=== PATIENT | female | born 1935 | race Caucasian/White ===

== ENCOUNTER → 2017-03-05 | Outpatient (CLI) | payer OTHER ==
--- NOTE | ~2017-03-05 | BD1 ---
[facility] A Service of [facility] & [facility] RADIOLOGY TEXT RESULTS PATIENT: JETHRO SAUCEDO LOCATION: [facility] : 39 UNIT #: [id number] AGE: [address]: Gini Gray MD SEX: F ORDER DR: [id number] [address] [id number] O MR#: [id number] Acc #: [id number] NAME: JETHRO SAUCEDO : 1935 SEX: F STUDY DATE/TIME: 03/05/2017 9:57 UNIT: [facility] ROOM: STUDY DESCRIPTION: Dexa Bone Dens 1+ Site Attending Physician: Gini Gray M.D. Referring Physician: Gini Gray M.D. Ordering Physician: Gini Gray M.D. Primary Care Physician: Gini Gray M.D. MEDICAL IMAGING REPORT This report is preliminary unless electronic signature is present. EXAM DXA scan 03/05/2017. HISTORY Status post menopause with no hormone replacement therapy. Osteopenia. Arthritis. Hypertension with blood pressure medication. Smoking history for 10 years. FINDINGS Bone mineral density in the lumbar spine from L1-L4 was 0.937 g/cm2, which is 2 standard deviations below the mean when compared to the young adult reference population which is characteristic of osteopenia. This is 0.2 standard deviations below the mean when compared to the age-matched population. Bone mineral density in the left femoral neck was 0.871 g/cm2, which is 1.2 standard deviations below the mean when compared to the young adult reference population which is characteristic of osteopenia. This is 0.9 standard deviations above the mean when compared to the age-matched population. Bone mineral density in the right femoral neck was 0.765 g/cm2, which is 2 standard deviations below the mean when compared to the young adult reference population which is characteristic of osteopenia. This is 0.2 standard deviations above the mean when compared to the age-matched population. IMPRESSION Bone mineral density in the lumbar spine and the hips bilaterally characteristic of osteopenia. Dictated by... Abran Wang M.D. THIS IS AN ELECTRONICALLY VERIFIED REPORT Abran Wang M.D. at 03/06/2017 7:17 AM KRT/gz STS. [facility] A Service of [facility] & [facility] RADIOLOGY TEXT RESULTS PATIENT: JETHRO SAUCEDO LOCATION: [facility] #: [id number] : 39 UNIT #: [id number] AGE: [address]: Gini Gray MD SEX: F ORDER DR: TD: 03/05/2017 16:09 JOB #: [id number] MEDICAL IMAGING REPORT Page 1 of 1
== END | disposition home or self-care (01) ==
LOC: SRAD 03-02 09:45
DX: M81.0 Age-related osteoporosis without current pathological fracture (principal); Z78.0 Asymptomatic menopausal state
CPT/HCPCS: 77080